=== PATIENT | female | born 1950 | race Two or more races ===

== ENCOUNTER 2020-04-08 10:59 | Outpatient (CLI) | payer BC | END 2020-04-08 23:59 | disposition home or self-care (01) | LOC: LAB 10:59 | PROVIDERS: ATTEND Student in an Organized Health Care Education/Training Program | DX: Z01.812 Encounter for preprocedural laboratory examination (principal); Z20.828 Contact with and (suspected) exposure to other viral communicable diseases | CPT/HCPCS: 87426; C9803 ==

== ENCOUNTER 2020-04-14 10:06 | Day surgery (SDC) | payer BC ==
[~2020-04-14] VITALS: Ht 165.1 cm; Wt 63.5 kg
--- NOTE | 2020-04-14 10:00 | NUR ---
PATIENT ARRIVED TO ROOM VIA GURNEY A/O X 4 WITH NO SIGNS OF DISTRESS. ORIENTED TO HER ROOM IV WAS PUT ON L HAND #22G INTACT. CONSENTS ARE SIGNED. SAFETY MEASURED ARE APPLIED BED IS IN LOW AND LOCK POSITION. SIDE RAILS X 2 UP FOR SAFETY. CALL LIGHT WITHIN REACH. WILL CONTINUE TO MONITOR.
[2020-04-14] MEDS ORDERED: EPINEPHRINE (1:1000) 1 MG/ML AMPUL ONE (11:45)
[2020-04-14] MEDS ORDERED: HYDROMORPHONE INJ 2 MG/ML DISP.SYRIN ONE (11:59)
[2020-04-14] MEDS ORDERED: MIDAZOLAM HCL 2 MG/2ML VIAL ONE (12:00)
[2020-04-14] MEDS ORDERED: MORPHINE SULFATE/PF 10 MG/10ML (1MG/ML) AMPUL ONE (12:07)
[2020-04-14] MEDS ORDERED: BUPIVACAINE 0.5 % PF 150 MG/30 ML VIAL ONE (12:08)
[2020-04-14] MEDS ORDERED: KETOROLAC TROMETHAMINE INJ 30 MG/ML VIAL ONE (13:21)
[2020-04-14] MEDS ORDERED: LANOLIN/MIN OIL/PETROLAT,WHT 3.5 GM TUBE ONE (13:29)
[2020-04-14 14:20] VITALS: BP 112/69
--- NOTE | 2020-04-14 14:20 | NUR ---
PATIENT ARRIVED TO THE ROOM FROM SURGERY. SHRADDHA JOSEPH GAVE BEDSIDE REPORT. INITIAL VITALS BP 127/68 HR 67 RR 18 SPO2 100% AND TEMP 97.4F. PATIENT IS SLEEPING IN BED A/OX4. NO SIGNS OF DISTRESS OR NO SOB ON 2L OF NASAL CANNULA. IV L HAND#22G INTACT. NO COMPLAIN OF PAIN AT THIS TIME. SAFETY MEASURES ARE APPLIED BED IS IN LOW POSITION AND LOCKED, SIDE RAILS UP X 2 FOR SAFETY. CALL LIGHT WITHIN REACH. WILL CONTINUE TO MONITOR.
[2020-04-14 14:35] VITALS: BP 100/65
[2020-04-14] MEDS ORDERED: HYDROCODONE/APAP 5/325MG TABLET PO PRN (16:30)
[2020-04-14 18:34] VITALS: BP 112/63
--- NOTE | 2020-04-14 19:00 | NUR ---
PATIENT VITALS WERE WITHIN NORMAL LIMIT, NO SIGNS OF SHORTNESS OF BREATH AND NO PAIN UPON DISCHARGE. CRUTCHES WERE PROVIDED FOR THE PATIENT. DISCHARGE INFORMATION WAS GIVEN TO THE PATIENT PATIENT VERBALIZE UNDERSTANDING AND BELONGING LIST WAS SIGNED. IV REMOVED WITH NO SIGNS OF BLEEDING AND COVERED. PATIENT LEFT TO THE LOBBY VIA WHEELCHAIR ACCOMPANIED BY RANULFO ALMAZAN.
== END 2020-04-14 18:00 | disposition home or self-care (01) ==
LOC: DS 10:06 → UNDOADMIN 10:11 → MED 10:11 → DS 18:00 → UNDODISIN 19:00
PROVIDERS: ATTEND Student in an Organized Health Care Education/Training Program
DX: S83.231A Complex tear of medial meniscus, current injury, right knee, initial encounter (principal); S83.281A Other tear of lateral meniscus, current injury, right knee, initial encounter; X58.XXXA Exposure to other specified factors, initial encounter; Y93.89 Activity, other specified; Y92.89 Other specified places as the place of occurrence of the external cause; Y99.8 Other external cause status; M65.861 Other synovitis and tenosynovitis, right lower leg; M94.261 Chondromalacia, right knee; D64.9 Anemia, unspecified; E78.5 Hyperlipidemia, unspecified; F32.9 Major depressive disorder, single episode, unspecified; F41.9 Anxiety disorder, unspecified; Z79.899 Other long term (current) drug therapy
CPT/HCPCS: 29876; 29880; A4217; A6253; J0171; J1170; J1885; J2250; J2274; J3490; G0378